=== PATIENT | male | born 1935 | race Caucasian/White ===

== ENCOUNTER 2020-09-08 17:23 | Inpatient (IN) | payer MEDICARE, OTHER ==
[~2020-09-08] VITALS: Ht 170.2 cm; Wt 63.5 kg
[2020-09-08 19:39] LABS: HEMOGLOBIN 10.7 gm/dl (14.0-17.5); RED BLOOD COUNT 3.52 M/UL (4.20-5.50); WHITE BLOOD COUNT 7.4 K/UL (4.5-11.0)
[2020-09-08 20:05] LABS: BUN/CREATININE RATIO 20 (0-10)
[2020-09-09 04:54] LABS: WHITE BLOOD COUNT 7.2 K/UL (4.5-11.0)
[2020-09-09 04:56] LABS: HEMOGLOBIN 8.7 gm/dl (14.0-17.5); RED BLOOD COUNT 2.9 M/UL (4.20-5.50)
[2020-09-09] MEDS ORDERED: ZESTRIL 40 MG T40 MG PO (09:03)
[2020-09-09] MEDS ORDERED: LASIX20 MG PO (09:04)
[2020-09-09] MEDS ORDERED: ZOCOR10 MG PO (09:04)
[2020-09-09] MEDS ORDERED: HYDROXYZINE HCL25 MG PO (09:06)
[2020-09-09] MEDS ORDERED: TRICOR 145 MG145 MG PO (09:06)
[2020-09-09] MEDS ORDERED: LOPRESSOR 25 MG25 MG PO (09:07)
== END 2020-09-09 17:39 | disposition left against medical advice (07) | DRG 683 ==
LOC: ER1 17:23 → CDU 21:44
PROVIDERS: Internal Medicine; Student in an Organized Health Care Education/Training Program; ADMIT Internal Medicine
DX: N17.9 Acute kidney failure, unspecified (principal); E87.2 Acidosis; E87.5 Hyperkalemia; E11.22 Type 2 diabetes mellitus with diabetic chronic kidney disease; Z53.29 Procedure and treatment not carried out because of patient's decision for other reasons; I12.9 Hypertensive chronic kidney disease with stage 1 through stage 4 chronic kidney disease, or unspecified chronic kidney disease; E78.5 Hyperlipidemia, unspecified; Z20.822 Contact with and (suspected) exposure to COVID-19; H91.90 Unspecified hearing loss, unspecified ear; E11.649 Type 2 diabetes mellitus with hypoglycemia without coma; I25.10 Atherosclerotic heart disease of native coronary artery without angina pectoris; D53.9 Nutritional anemia, unspecified; N18.30 Chronic kidney disease, stage 3 unspecified; Z82.49 Family history of ischemic heart disease and other diseases of the circulatory system; Z79.4 Long term (current) use of insulin; Z72.0 Tobacco use
CPT/HCPCS: 36415; 71045; 80048; 80053; 81001; 82550; 82553; 82652; 82728; 82803; 82962; 83540; 83550; 83735; 83874; 83880; 84100; 84443; 84484; 85025; 85027; 93005; 94640; 94664; 96374; 96375; 99285; G0378; J0610; J7120; U0002

== ENCOUNTER → 2020-09-08 | Outpatient (CLI) | payer MEDICARE, OTHER ==
[~2020-09-08] MED LIST: HYDROXYZINE HCL25 MG PO; LASIX20 MG PO; LOPRESSOR 25 MG25 MG PO; TRICOR 145 MG145 MG PO; ZESTRIL 40 MG T40 MG PO; ZOCOR10 MG PO
[2020-09-08 13:16] LABS: RED BLOOD COUNT 3.57 M/UL (4.20-5.50); WHITE BLOOD COUNT 7.7 K/UL (4.5-11.0)
== END ==
LOC: EDBD 12:35 → LAB 12:35
PROVIDERS: Nurse Practitioner Family
DX: Z53.8 Procedure and treatment not carried out for other reasons (principal)
CPT/HCPCS: 36415; 80053; 82652; 82728; 83540; 83550; 83880; 84443; 85027

== ENCOUNTER 2021-12-08 05:55 | Inpatient (IN) | payer MEDICARE, OTHER ==
[~2021-12-08] VITALS: Ht 172.7 cm; Wt 61.2 kg
[2021-12-08 06:13] LABS: HEMOGLOBIN 8.5 gm/dl (14.0-17.5); RED BLOOD COUNT 2.77 M/UL (4.20-5.50); WHITE BLOOD COUNT 4.2 K/UL (4.5-11.0)
[2021-12-08] MEDS ORDERED: LISINOPRIL40 MG PO (12:03)
[2021-12-08] MEDS ORDERED: METOPROLOL TART25 MG PO (12:04)
[2021-12-08] MEDS ORDERED: SIMVASTATIN10 MG PO (12:04)
[2021-12-08] MEDS ORDERED: FENOFIBRATE145 MG PO (12:06)
[2021-12-08] MEDS ORDERED: FUROSEMIDE20 MG PO (12:06)
[2021-12-08] MEDS ORDERED: LANTUS SOL100 UNIT/1 SQ (12:06)
--- NOTE | 2021-12-08 21:39 | NUR ---
spoke with javi singer, spouse of patient, she states she wants to sign patient out AMA and she is fully aware of the circumstances and will take full responsibility for patient, dr park has consulted with patient and ROMERO blanco and states he has no changes to prescriptions at this time to allow patient to leave, Dr. darnell was consulted by bella JASSO and has not changes to medications at this time
--- NOTE | 2021-12-08 22:36 | NUR ---
12/08/212044 PTS STATES THAT THE PATIENT WANTS TO GO HOME. THE PATIENT IF NOW ALERT AND ORIENTED AND THE SAYS "HE IS IN HIS RIGHT MIND". DAUGHTER IS ALSO AT BEDSIDE AND WILLING TO DRIVE HIM HOME. TRIED TO DISCUSS THE PLAN OF CARE WITH THE PATIENT AND THE NEED FOR FLUIDS FOR HIS KIDNEYS AND PATIENT SAYS "I DONT CARE, I WANT TO GO HOME." THE TELLS ME THAT SHE IS NOT GOING TO MAKE HIM STAY IF HE WANTS TO GO HOME. I CALLED [facility] TO NOTIFY OF THE PATIENT WANING TO LEAVE AMA. I THEN CALLED DR. MEYER AND HE CAME AND SPOKE TO THE FAMILY AND THE PATIENT AT BEDSIDE. DR. MEYER SAID TO LET HIM GO AND HE WAS NOT GOING TO MAKE ANY CHANGES TO HE HOME MEDS AT THIS TIME. 2100 REMOVED ALL IV ACCESS AND FAMILY HELPED HIM TO GET DRESSED AND THE DAUGHTER TRANSPORTED HIM OUT VIA WHEELCHAIR.
== END 2021-12-08 22:15 | disposition left against medical advice (07) | DRG 922 ==
LOC: ER1 05:55 → CCU 09:33 → CDU 09:33 → CCU 11:37 → EDBD 22:15
PROVIDERS: Emergency Medicine; Internal Medicine Nephrology; ADMIT Internal Medicine
PROC: 3E043XZ Introduction of Vasopressor into Central Vein, Percutaneous Approach (ICD-10-PCS; principal; 2021-12-08)
DX: T68.XXXA Hypothermia, initial encounter (principal); G93.41 Metabolic encephalopathy; Z20.822 Contact with and (suspected) exposure to COVID-19; R57.1 Hypovolemic shock; N17.9 Acute kidney failure, unspecified; E87.1 Hypo-osmolality and hyponatremia; E87.4 Mixed disorder of acid-base balance; N18.4 Chronic kidney disease, stage 4 (severe); E11.649 Type 2 diabetes mellitus with hypoglycemia without coma; E86.0 Dehydration; I12.9 Hypertensive chronic kidney disease with stage 1 through stage 4 chronic kidney disease, or unspecified chronic kidney disease; E11.22 Type 2 diabetes mellitus with diabetic chronic kidney disease; E78.5 Hyperlipidemia, unspecified; I95.9 Hypotension, unspecified; I44.0 Atrioventricular block, first degree; D72.819 Decreased white blood cell count, unspecified; D63.1 Anemia in chronic kidney disease; Z86.73 Personal history of transient ischemic attack (TIA), and cerebral infarction without residual deficits; Z80.9 Family history of malignant neoplasm, unspecified; Z28.310 Unvaccinated for COVID-19; Z79.4 Long term (current) use of insulin
CPT/HCPCS: 0240U; 70450; 71045; 80048; 80053; 81001; 82607; 82728; 82746; 82803; 82962; 83036; 83540; 83550; 83605; 83735; 84100; 84439; 84443; 85025; 87040; 87086; 93005; 94664; 94760; 97161; 99285; J2185; J2543; J3411; J3480